=== PATIENT | male | born 1985 | race Caucasian/White ===

== ENCOUNTER 2020-11-06 07:53 | Outpatient (REF) | payer MEDICAID, OTHER, SELFPAY | END 2020-11-06 07:54 | disposition home or self-care (01) | LOC: HO.LAB 07:53 | PROVIDERS: Visit Provider Internal Medicine | DX: Z20.822 Contact with and (suspected) exposure to COVID-19 (principal) | CPT/HCPCS: 36415; C9803; U0003; U0005 ==

== ENCOUNTER 2020-11-29 14:53 | Outpatient (REF) | payer MEDICAID, OTHER, SELFPAY ==
[2020-11-30 09:51] LABS: SARS COV2 PCR INHOUSE POSITIVE (Negative)
== END 2020-11-29 14:54 | disposition home or self-care (01) ==
LOC: HO.LAB 14:53
PROVIDERS: Visit Provider Internal Medicine
DX: Z20.822 Contact with and (suspected) exposure to COVID-19 (principal)
CPT/HCPCS: C9803; U0003